=== PATIENT | female | born 1935 | race Two or more races ===

== ENCOUNTER 2018-04-23 14:53 | Outpatient (CLI) | payer OTHER | END 2018-04-23 16:21 | disposition home or self-care (01) | LOC: RAD 501 14:53 | DX: E03.8 Other specified hypothyroidism (principal); E78.89 Other lipoprotein metabolism disorders; I10 Essential (primary) hypertension; Z12.11 Encounter for screening for malignant neoplasm of colon ==

== ENCOUNTER 2018-05-12 10:02 | Outpatient (CLI) | payer OTHER | END 2018-05-12 10:17 | disposition home or self-care (01) | LOC: NUCLEAR 10:02 | DX: M81.0 Age-related osteoporosis without current pathological fracture (principal); E03.8 Other specified hypothyroidism; E78.89 Other lipoprotein metabolism disorders; M89.9 Disorder of bone, unspecified; Z12.11 Encounter for screening for malignant neoplasm of colon; I10 Essential (primary) hypertension ==

== ENCOUNTER 2019-03-06 11:08 | Outpatient (CLI) | payer OTHER | END 2019-03-06 11:12 | disposition home or self-care (01) | LOC: SONOGRAMA 11:08 | DX: E04.8 Other specified nontoxic goiter (principal) ==

== ENCOUNTER 2021-04-20 08:00 | Outpatient (CLI) | payer OTHER | END 2021-04-20 08:30 | disposition home or self-care (01) | LOC: PPH VACUNA 08:00 | PROVIDERS: ATTEND Emergency Medicine Pediatric Emergency Medicine | DX: Z23 Encounter for immunization (principal) ==

== ENCOUNTER 2021-12-10 08:00 | Outpatient (CLI) | payer OTHER | END 2021-12-10 08:30 | disposition home or self-care (01) | LOC: PPH VACUNA 08:00 | PROVIDERS: ATTEND Emergency Medicine Pediatric Emergency Medicine | DX: Z23 Encounter for immunization (principal) ==

== ENCOUNTER 2022-04-09 09:02 | Outpatient (CLI) | payer OTHER | END 2022-04-09 09:04 | disposition home or self-care (01) | LOC: NUCLEAR 09:02 | DX: M81.0 Age-related osteoporosis without current pathological fracture (principal); M79.672 Pain in left foot; I10 Essential (primary) hypertension; E78.9 Disorder of lipoprotein metabolism, unspecified; E55.9 Vitamin D deficiency, unspecified; Z13.820 Encounter for screening for osteoporosis ==

== ENCOUNTER 2024-07-01 08:32 | Outpatient (CLI) | payer OTHER ==
[~2024-07-01 08:32] MED LIST: LEVOTHYROXINE50 MCG PO; METOPROLOL SUCC25 MG PO; SIMVASTATIN80 MG PO; SYNTHROID50 MCG; ZOCOR5 MG
== END 2024-07-01 08:36 | disposition home or self-care (01) ==
LOC: SONOGRAMA 08:32
PROVIDERS: ATTEND Internal Medicine Gastroenterology
DX: R16.1 Splenomegaly, not elsewhere classified (principal)

== ENCOUNTER 2025-05-10 13:26 | Outpatient (CLI) | payer OTHER | END 2025-05-10 13:30 | disposition home or self-care (01) | LOC: SONOGRAMA 13:26 | DX: M72.2 Plantar fascial fibromatosis (principal) ==

== ENCOUNTER 2025-05-13 12:55 | Emergency (ER) | payer OTHER ==
[~2025-05-13] VITALS: Ht 167.6 cm; Wt 68.0 kg
[2025-05-13] MEDS ORDERED: GABAPENTIN300 M2 PO (13:30)
[2025-05-13] MEDS ORDERED: PEPCID AC20 MG PO (13:30)
[2025-05-13] MEDS ORDERED: OMEPRAZOLE-BIC1 EAC1 PO (13:31)
[2025-05-13] MEDS ORDERED: ALENDRONATE SOD70 MG PO (13:32)
[2025-05-13] MEDS ORDERED: KETOROLAC TROMETHAMINE 30 MG VIAL IM STA (14:28)
[2025-05-13] MEDS ORDERED: DEXAMETHASONE SODIUM PHOSPHATE 4 MG/ML VIAL IM ONE (20:15)
[2025-05-13] MEDS ORDERED: KETOROLAC TROMETHAMINE 30 MG VIAL IM ONE (20:15)
== END 2025-05-13 22:25 | disposition home or self-care (01) ==
LOC: ER 12:55
DX: S32.592A Other specified fracture of left pubis, initial encounter for closed fracture (principal); S32.60 Unspecified fracture of ischium; W19.XXXA Unspecified fall, initial encounter; Y93.89 Activity, other specified; Y92.89 Other specified places as the place of occurrence of the external cause; Y99.8 Other external cause status; M79.605 Pain in left leg; R26.2 Difficulty in walking, not elsewhere classified
CPT/HCPCS: 72192; 73700; 96372; 99284; J1885 ×2; J2405

== ENCOUNTER 2025-06-03 04:45 | Emergency (ER) | payer OTHER ==
[~2025-06-03] VITALS: Ht 167.6 cm; Wt 68.0 kg
[~2025-06-03 04:45] MED LIST changes: +ALENDRONATE SOD70 MG PO; +GABAPENTIN300 M2 PO; +OMEPRAZOLE-BIC1 EAC1 PO; +PEPCID AC20 MG PO
[2025-06-03] MEDS ORDERED: FAMOTIDINE/PF 20 MG/2 ML VIAL IV PUSH STA (06:10)
[2025-06-03] MEDS ORDERED: ONDANSETRON HCL 2 MG/ML VIAL IV STA (06:10)
[2025-06-03] MEDS ORDERED: FAMOTIDINE/PF 20 MG/2 ML VIAL ONE (06:15)
[2025-06-03] MEDS ORDERED: ONDANSETRON HCL 2 MG/ML VIAL ONE (06:15)
[2025-06-03] MEDS ORDERED: 0.9 % SODIUM CHLORIDE 1,000 ML IV ONE (06:15)
[2025-06-03 06:53] LABS: BASO % 0.2 % (0.1-1.2); EOS # 0.00 (0.04-0.54); EOS % 0.0 % (0.7-7.0); LYMPH # 0.64 (1.18-3.74); LYMPH % 7.8 % (19.3-53.1); MEAN PLATELET VOLUME 9.50 fl (9.4-12.4); MONO # 0.25 (0.24-0.82); MONO % 3.0 % (4.7-12.5); NEUT # 7.28 (1.56-6.13); NEUT % 88.5 % (34.0-71.1); RED CELL DISTRIBUTION WIDTH 14.1 % (11.6-14.4)
[2025-06-03 07:29] LABS: ALT/SGPT 15.0 U/L (12-78); AST/SGOT 14.0 U/L (15-37); BILIRUBIN TOTAL 0.68 mg/dL (0.3-1.2); BUN CREA RATIO 28.0 (7.0-25.0); CREATININE SERUM 0.99 mg/dL (0.55-1.02); GFR 52.93; GLOBULINA 3.5 G/DL (2.4-3.5); GLUCOSE FASTING 190.0 mg/dL (65-100); OSMOLALITY SERUM 294.0 MOSM/KG (275-295)
[2025-06-03 10:34] LABS: URINE APPEARANCE Clear; URINE BILIRRUBIN Negative (NEGATIVE); URINE BLOOD Negative; URINE COLOR Yellow; URINE GLUCOSE Negative (NEGATIVE); URINE KETONE 15 (NEGATIVE); URINE LEUKOCYTE Negative; URINE NITRATE Negative; URINE PROTEIN 30 (NEGATIVE); URINE UROBILINOGEN 1.0 E.U./dl
[2025-06-03 10:38] LABS: URINE BACTERIA 141.5 uL (0.0-1933); URINE EPITHELIAL CELLS 7.5 uL (0.0-38.8); URINE RBC 6.4 uL (0.0-20.8); URINE WBC 6.3 uL (0.0-23.2)
[2025-06-03] MEDS ORDERED: PEPCID AC20 MG PO (10:47)
[2025-06-03] MEDS ORDERED: ZOFRAN8 MG PO (10:47)
[2025-06-03 11:33] LABS: URINE CAST 0.29 uL (0.0-1.40)
== END 2025-06-03 12:00 | disposition home or self-care (01) ==
LOC: ER 04:46
PROVIDERS: General Practice
DX: K52.9 Noninfective gastroenteritis and colitis, unspecified (principal); I10 Essential (primary) hypertension
CPT/HCPCS: 36415; 96365; 96366; 99282; J2405; J3490; J7030

== ENCOUNTER 2025-07-07 11:00 | Outpatient (CLI) | payer OTHER ==
[~2025-07-07 11:00] MED LIST changes: +ZOFRAN8 MG PO
== END 2025-07-07 11:10 | disposition home or self-care (01) ==
LOC: TOM 11:00
DX: R10.32 Left lower quadrant pain (principal); K57.32 Diverticulitis of large intestine without perforation or abscess without bleeding
CPT/HCPCS: 74178; Q9965

== ENCOUNTER 2025-07-11 10:02 | Outpatient (CLI) | payer OTHER | END 2025-07-11 10:04 | disposition home or self-care (01) | LOC: NUCLEAR 10:02 | PROVIDERS: ATTEND Orthopaedic Surgery | DX: M81.0 Age-related osteoporosis without current pathological fracture (principal); I87.2 Venous insufficiency (chronic) (peripheral) ==